=== PATIENT | male | born 1965 | race Caucasian/White ===

== ENCOUNTER 2025-06-24 12:41 | Day surgery (SDC) | payer OTHER ==
[2025-06-17 12:33] LABS: MEAN PLATELET VOLUME 8.1 FL (7.4-10.4); PRE OP HEMATOCRIT 43.2 % (42.0-52.0); PRE OP HEMOGLOBIN 14.6 g/dL (14.0-17.9); PRE OP PLATELET COUNT 235 X10'3 (140-440); PRE OP WHITE BLOOD COUNT 6.8 10'3 (4.8-10.8); RED CELL DISTRIBUTION WIDTH 14.7 % (11.5-14.5)
[2025-06-17 12:54] LABS: CREATININE 0.94 MG/DL (0.60-1.10); PRE OP ALT 42 U/L (30-65); PRE OP ANION GAP 6 (8-16); PRE OP AST 27 U/L (10-37); PRE OP BILIRUB, TOTAL 0.6 MG/DL (0.0-1.0); PRE OP GLUCOSE 97 MG/DL (70-104); PRE OP POTASSIUM 4.3 MMOL/L (3.4-5.1); PRE OP SODIUM 135 MMOL/L (135-145); TOTAL CARBON DIOXIDE 28.5 MMOL/L (24-32); eGFR 83 ML/MIN
[2025-06-24] VITALS (8 sets, daily range): BP systolic 128–141; BP diastolic 66–80; PULSE 70–82; RESP 12–16; TEMP 97.7; O2SAT 93–98
[~2025-06-24] VITALS: Ht 188 cm; Wt 115.9 kg
[~2025-06-24 12:41] MED LIST: DAPA10TA PO; GLIP10TA18 PO; LISI10TA27 PO; SIMV-342 PO; SITA1TAB6 PO
[2025-06-24] MEDS: ringers solution, lacted 1,000 ML IV SCH (13:31)
[2025-06-24] MEDS: VANCOMYCIN/WATER FOR INJ (PEG) 1.5GM/300 ML IVPB IV ONE (13:33)
[2025-06-24] MEDS ORDERED: bacitracin 15gm ointment TP ONE (13:42)
[2025-06-24] MEDS ORDERED: fentaNYL/PF 50MCG/1 ML 2ML syringe ONE (14:47)
[2025-06-24] MEDS ORDERED: midazolam 1 mg/ML 2ml injection ONE (14:48)
[2025-06-24] MEDS ORDERED: propofol inj 20 ML IV ONE (14:49)
[2025-06-24] MEDS ORDERED: BUPIVAcaine 2.5mg/ml inj 50ml vial (contains preservative) ONE (15:48)
[2025-06-24] MEDS ORDERED: ringers solution, lacted 1,000 ML IV SCH (16:25)
[2025-06-24] MEDS ORDERED: hydrALAZINE 20mg/ml inj. IV PRN (16:25)
[2025-06-24] MEDS ORDERED: morphine 4 MG/ML inj SYRINge IV PRN (16:25)
[2025-06-24] MEDS ORDERED: labetalol 20mg/4ml (5mg/ml) syringe IV PRN (16:25)
[2025-06-24] MEDS ORDERED: ondansetron/PF 4mg/2ml inj IV PRN (16:25)
[2025-06-24] MEDS ORDERED: HYDROmorphone/PF 0.2 MG/ML SYRINGE IV PRN ×2 (16:25)
--- NOTE | 2025-06-24 16:58 | OPERATIVE REPORT ---
DATE OF SURGERY: 06/24/2025 DICTATING PHYSICIAN: JOEL RAMOS DPM PREOPERATIVE DIAGNOSES: Bilateral second toe hammertoe pain and right-sided third digit osteomyelitis and bone infection. POSTOPERATIVE DIAGNOSES: Bilateral second toe hammertoe pain and right-sided third digit osteomyelitis and bone infection. PROCEDURES: * Bilateral second digit hammertoe correction with pinning. * Right third digit partial toe amputation. SURGEON: Joel Ramos DPM APPLIANCE WORKER: Juan Sanchez DPM fellow, assistance was needed to decrease tourniquet time, help with efficiency and retraction throughout the entirety of the procedure. ANESTHESIA: General anesthesia. HEMOSTASIS: Calf tourniquet. FINDINGS: None. COMPLICATIONS: None. SPECIMENS: Right third digit sent for pathological specimen. ESTIMATED BLOOD LOSS: 1-5 mL. HARDWARE: None. INJECTABLES: 20 mL of 0.25% Marcaine plain preoperatively. INDICATIONS: The patient presented to the office with the above-listed complaints, which has been unresponsive to conservative treatment options, thus surgical options have been offered along with all potential risks, complications, and surgical outcomes being fully explained to the patient's level of understanding. No guarantees were given. Clinical and radiographic data correlate with the above diagnosis. The patient was inherited to me from my partner and was complaining of hammertoe pain as well as a third digit that appeared to show signs of bone infection, so therefore, I offered a non-traumatic amputation as well as hammertoe corrections. This is also what he was scheduled for by my partner. I did review his clinical and radiographic presentation and I agreed with this plan. DESCRIPTION OF PROCEDURE: The patient was brought to the operating room and placed on the operating table in the supine position. The patient was induced under general anesthesia. The patient then received approximately 20 mL of 0.25% Marcaine plain per foot and then the foot and ankles were prepped and draped in the usual aseptic fashion. Previously applied calf tourniquet was then inflated to 250 mmHg after a timeout was called and preoperative antibiotics were given and dosed appropriately. Third digit partial amputation of the right side. We then brought our attention to the right side where a fishmouth incision was then made using a 15 blade. We carefully dissected down to the level of the subcutaneous tissue with care being taken to identify and retract all vital and neurovascular structures. After this, we identified the joint. We made sure to incorporate the distal interphalangeal joint, which was disarticulated and then sent for pathological specimen. In order to size match the other foot as well as to achieve appropriate skin closure, we did disarticulate at the PIPJ as well. We then flushed with copious amounts of sterile normal saline and we then identified for any findings of purulent drainage or tracking or undermining, but none was to be found, so therefore, we flushed and closed this incision appropriately. Bilateral second toe hammertoe corrections with pinning. The same procedure was performed at the same anatomic site in the same way. So, our attention was then brought to the dorsal aspect of the proximal interphalangeal joints of bilateral feet. This was at the second digit. Vertical incisions were then made using a 15 blade. We then carefully dissected down to the level of the proximal interphalangeal joints using careful dissection in order to protect and identify all neurovascular structures. After this, we then identified the proximal interphalangeal joint, which was opened up to the operative field and then a sagittal saw was utilized to remove the head of the proximal phalanx and the base of the middle phalanx. We transected the flexor tendon appropriately. After this, we then placed a 0.062 K-wire down the medullary canal of each phalanx as we reduced the patient's second digit. We then reduced at the MTP joint and then crossed into the respected second metatarsal. It was noted that there was excellent reduction, so therefore, we did not need to perform any metatarsophalangeal joint rebalancing or lengthening. So, therefore, we took final fluoroscopic imaging and then we bent and cut the wires and placed Jurgan balls over top. After this, we then took final fluoroscopic imaging. We then flushed and closed all of our incisions and then closed our incisions in a layered fashion. A 3-0 nylon was used in a simple interrupted and horizontal technique for the skin. After this, the patient's tourniquet was deflated and the patient was taken out of general anesthesia. The patient's feet were then dressed with triple antibiotic ointment followed by Adaptic, 4 x 4s, Webril, and an Terrell bandage in formation of a moderate compressive dressing. The patient was placed into bilateral CAM boots. The patient was instructed to be partially resected weightbearing to bilateral feet. The patient was then recovered very well in the PACU and is instructed to follow up with me approximately 1-2 weeks after surgery. The entire case was performed in a teaching fashion. I was available pre and postoperatively to answer any questions from the patient and his family. JOEL RAMOS DPM TID: [id number] RECEIPT: [id number] CONOR/SHIRA
--- NOTE | 2025-06-25 04:07 | RADIOLOGY REPORT ---
C-ARM FLUOROSCOPY: PROCEDURE: bilateral feet pinning FLUOROSCOPY TIME: 17.9 sec DAP: 0.60 mgy FINDINGS: Spot intraoperative C arm radiographs demonstrating bilateral feet pinning . IMPRESSION: Please refer to surgical report for detailed findings.
== END 2025-06-24 17:39 | disposition home or self-care (01) ==
LOC: PAS 12:41
PROVIDERS: ATTEND Podiatrist Foot & Ankle Surgery
DX: M20.41 Other hammer toe(s) (acquired), right foot (principal); M20.42 Other hammer toe(s) (acquired), left foot; M86.8X8 Other osteomyelitis, other site; I10 Essential (primary) hypertension; E11.9 Type 2 diabetes mellitus without complications; E78.5 Hyperlipidemia, unspecified; E66.9 Obesity, unspecified; Z87.891 Personal history of nicotine dependence; Z79.2 Long term (current) use of antibiotics; Z79.84 Long term (current) use of oral hypoglycemic drugs; Z79.899 Other long term (current) drug therapy; Z68.34 Body mass index [BMI] 34.0-34.9, adult; Z88.8 Allergy status to other drugs, medicaments and biological substances
CPT/HCPCS: 28285; 28825; 36415; 73620; 80053; 82948; 85025; A6222; J2250; J2704; J3010; J3375; J3490; J7030; J7120; Z7506; Z7508; Z7512; 76000; A4618; A6253; A6449; A7000